=== PATIENT | female | born 1955 | race Caucasian/White ===

== ENCOUNTER 2021-10-02 08:45 | Outpatient (CLI) | payer MEDICARE, OTHER, SELFPAY ==
[2021-10-02 11:16] LABS: Chloride* 101 mmol/L (96-114); Sodium* 138 mmol/L (135-149)
[2021-10-02 11:17] LABS: Potassium* 4.3 mmol/L (3.6-5.1)
[2021-10-02 11:19] LABS: Blood Urea Nitrogen* 18 mg/dL (7-30); Carbon Dioxide* 31 mmol/L (20-32); Cholesterol* 198 mg/dL (90-199); Creatinine* 0.9 mg/dL (0.5-1.5); Estimated Glomerular Filt Rate 70 ml/min
[2021-10-02 11:20] LABS: Calcium* 9.3 mg/dL (8.4-10.6); Glucose* 108 mg/dL (60-115); HDL Cholesterol* 80 mg/dL (>=50); LDL Cholesterol Calculated 100 mg/dL (<100); Triglycerides* 90 mg/dL (40-149)
[2021-10-02 11:50] LABS: TSH With Reflex to FT4* 0.821 uIU/mL (0.270-4.200)
== END 2021-10-02 08:46 | disposition home or self-care (01) ==
PROVIDERS: PCP Internal Medicine; Visit Provider Internal Medicine
DX: E78.5 Hyperlipidemia, unspecified (principal); I10 Essential (primary) hypertension; E03.9 Hypothyroidism, unspecified; M81.0 Age-related osteoporosis without current pathological fracture; Z13.9 Encounter for screening, unspecified
CPT/HCPCS: 80048; 80061; 84443

== ENCOUNTER 2022-04-24 09:49 | Outpatient (CLI) | payer MEDICARE, OTHER, SELFPAY ==
[2022-04-24 14:39] LABS: Albumin* 4.3 g/dL (3.3-5.0)
[2022-04-24 14:42] LABS: Alanine Aminotransferase* 26 U/L (4-35); Alkaline Phosphatase* 38 U/L (40-150); Aspartate Amino Transferase* 30 U/L (12-35); Bilirubin Direct* 0.2 mg/dL (0.0-0.5); Bilirubin Total* 0.6 mg/dL (0.1-1.5)
== END 2022-04-24 09:50 | disposition home or self-care (01) ==
PROVIDERS: PCP Internal Medicine; Visit Provider Nurse Practitioner Family
DX: R14.0 Abdominal distension (gaseous) (principal)
CPT/HCPCS: 80076

== ENCOUNTER 2022-06-08 08:45 | Outpatient (RCR) | payer MEDICARE, OTHER, SELFPAY ==
--- NOTE | 2022-05-03 19:33 | PT.OPEX ---
[facility] PT [facility] Outpatient Eval Start: 05/03/22 09:39 Freq: Status: Active Protocol: Document 05/03/22 09:39 ENM (Rec: 05/03/22 17:30 ENM [id number]) E-signed By Susi Stringer, DPT Physical Therapy Outpatient Evaluation Insurance Information Recert Due Date 07/26/22 Insurance Name Medicare B Medical Diagnosis pain in right shoulder other muscle spasm Treating Diagnosis neck pain, right shoulder pain , decreased scapular strength, hypomobile thoracic spine Referring MD Santana Subjective Subjective Patient presents to PT for complaint of right sided neck/ shoulder pain that started about a month ago. When she went to see the MD it was very bothersome on the ride side in her upper back and neck. The pain was sharp and shooting with specific positions. With reaching to pick things up off the ground it really bothered her. This started after caring for her mother which included sustaining positions where she was reaching to hold her. Also sleeping in a recliner in her mothers room did not help with the pains. Now the pains are not sharp and they are less frequent. Just before coming in today she was reaching into her closet which brought on a little bit of pain. With getting her sports bra off overhead that will consistently bring her issues in the last week. She is active running on the treadmill 3x a week and does an online work out plan with jennifer. 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 Objective Other/Pertinent Objective ROM: AROM shoulder flexion WNL with ache on the right abduction WNL with ache on the right IR T6 B with ache on the right ER T1 B with ache on the right Cervical flexion and ext WNL and pain free SB WNL with very mild pain going towards the right rot L 60 R 55 + for pain in the upper back and neck Strength: shoulder flexion 5/5 shoulder abduction 5/5 shoulder IR0 5/5 shoulder ER0 5/5 DNF able to hold ~20s before having difficult maintain tuck , no pain while performing slight twinge when coming out of it MT 4-/5 B Palpation/joint mobility: CPA and UPA cervical and thoracic spine stiffness throughout, no reproduction of pain no tenderness to palpation of neck musculature Special tests: Spurlings + for pain with SB and SB + ext Functional Test Performed & Score NDI: 0/50 SPADI: Assessment Assessment/Impression Patient is a 66 year old female presenting with once month history of right sided neck and shoulder pains. Their primary complaint is of pain present with reaching and overhead activities. Intensity and frequency of symptoms have been improving over the last month. Upon assessment patients concordant pains brought on with active right cervical sidebending and rotation as well as spurlings testing. Ache is present with all active shoulder ROM but not reproduced with MMT of the shoulder. Stiffness noted with PAs of cervical and thoracic spine. Some alleviation of symptoms with manual cervical distraction. Symptoms seem to be referring from cervical spine. Patient would greatly benefit from skilled PT to address impairments stated above in order to perform all self cares/ ADLs and recreational activities without significant discomfort or difficulty. Primary Functional Limitations reaching out or overhead, taking off sports bra Plan of Care Rehabilitation Potential Good Physical Therapy Goals In 6-8 visits: 1. Patient will be IND with HEP and self management of symptoms 2. Patient will display pain free shoulder ROM in order to perform all self cares and ADLS without significant discomfort or difficulty 3. Patient will display and implement proper body mechanics of cervical spine throughout work day to decrease reoccurrence of symptoms 4. Patient will be able to return to prior exercise routine pain free in order to maintain their cardiovascular fitness Coordination/Communication With Referral Source Treatment Plan/Direct Interventions Electrical Stimulation,Ice/ Cold/Vasopneumatic,Joint Mobilization,Manual Therapy, Neuromuscular Re-ed,Self-Care/ Home Management,Therapeutic Activities,Therapeutic Exercises,Traction (Mechanical ) Frequency/Duration 1x a week for 6-8 visits Patient Will Be Discharged From Therapy Completion of LTG(s), Independent w/HEP Evaluation Billing Untimed Code Treatment Minutes 35 Complexity Low Certification Information Initial Certification Date 05/03/22 Ending Certification Date 07/26/22 Provider Signature Shows Agreement With POC & Medical Necessity Physician Signature & Date Requested Please Sign/Date Here Physician Comment/Change : Physician NPI Number #
== END 2022-06-15 09:26 | disposition home or self-care (01) ==
PROVIDERS: PCP Internal Medicine; Visit Provider Family Medicine
DX: M25.511 Pain in right shoulder (principal); M62.838 Other muscle spasm; M54.2 Cervicalgia; Z51.89 Encounter for other specified aftercare
CPT/HCPCS: 97110; 97140; 97161

== ENCOUNTER 2022-10-12 10:03 | Outpatient (CLI) | payer MEDICARE, OTHER, SELFPAY | END 2022-10-12 10:04 | disposition home or self-care (01) | PROVIDERS: PCP Internal Medicine; Visit Provider Internal Medicine | DX: Z00.00 Encounter for general adult medical examination without abnormal findings (principal); E78.5 Hyperlipidemia, unspecified; I10 Essential (primary) hypertension; E03.9 Hypothyroidism, unspecified; M81.0 Age-related osteoporosis without current pathological fracture | CPT/HCPCS: 80048; 80061; 82306; 84443 ==

== ENCOUNTER 2023-01-05 14:18 | Outpatient (CLI) | payer MEDICARE, OTHER, SELFPAY ==
--- NOTE | 2023-01-05 14:30 | CRLHL7_ITS ---
For Patients: As a result of the Century Cures Act, medical imaging exams and procedure reports are released immediately into your electronic medical record. You may view this report before your referring provider. If you have questions, please contact your health care provider. DXA BONE MINERAL DENSITY STUDY Reason for exam: Osteoporosis. Current height (in): 55. Weight (lb): 120. Menopause age: 53. Ethnicity: White. 1. Have you had a previous hip or vertebral fracture? No. 2. Have you had any fractures during your adult life which did not result from significant trauma (e.g., auto accident)? No. 3. Did either of your parents have a hip fracture? No. 4. Do you smoke? No. 5. Have you ever taken Glucocorticoids? No. 6. Do you have rheumatoid arthritis? No. 7. Do you have secondary osteoporosis? No. 8. Do you drink 3 or more alcoholic drinks per day? No. 9. Are you being treated for osteoporosis? Yes. 10. Have you ever taken any of the following medications: Actonel, Evista, Fosamax, Miacalcin, Reclast, Boniva, Forteo, HRT (i.e., estrogen/hormone therapy), Protelos, Prolia, Vitamin D, Calcium, other ??? please specify. ANSWER: Yes, Fosamax, vitamin D, and calcium. 11. Do you have any of the following medical conditions: Anorexia or bulimia, asthma or emphysema, end stage renal disease, hyperparathyroidism, any seizure disorders, cancer, inflammatory bowel diseases, hysterectomy, other ??? please specify. ANSWER: No. 12. What was your maximum height (inches)? 61.5. 13. Do you perform weight bearing exercise regularly? Yes. 14. Do you regularly consume dairy products? Yes. 15. Do you drink caffeinated beverages? Yes. If female: 16. At what age did your period start? 14. 17. Are you premenopausal? No. 18. How many full-term pregnancies have you had? 3. 19. Have you ever missed your period for more than 6 months in a row (not including or menopause)? No. TECHNIQUE: Bone mineral density study was performed using the [facility]. FINDINGS: The results of the study expressed as bone mineral density (BMD) are as follows: Lumbar spine L1 to L4: BMD: 0.726 g/cm2. T-score: -2.9. Z-score: -0.8 Neck Left: BMD: 0.562 g/cm2. T-score: -2.6. Z-score: -0.8 Right: BMD: 0.674 g/cm2. T-score: -1.6. Z-score: 0.2 Total Left: BMD: 0.670 g/cm2. T-score: -2.2. Z-score: -0.8 Right: BMD: 0.804 g/cm2. T-score: -1.1. Z-score: 0.3 IMPRESSION: Osteoporosis. *Comparison exams done prior to 08/2019 were performed on different unit, [employer]. COMPARISON: Compared with scan of 11/15/2019, the bone mineral density has increased by 0.9 percent at the spine and decreased by 1.5 percent at the hip. Compared with scan of 07/20/2018, the bone mineral density has increased by 0.5 percent at the spine and increased by 9.8 percent at the hip. Gavino Frey M.D. Diagnostic Radiologist [email or web address] [email or web address] jj/Dictated by: Gavino Frey MD @ 01/06/2023 12:27:00 PM (Electronically Signed)
--- NOTE | 2023-01-05 15:00 | CRLHL7_ITS ---
For Patients: As a result of the Century Cures Act, medical imaging exams and procedure reports are released immediately into your electronic medical record. You may view this report before your referring provider. If you have questions, please contact your health care provider. BILATERAL SCREENING MAMMOGRAM WITH COMPUTER-AIDED DETECTION AND TOMOSYNTHESIS TECHNIQUE: CC and MLO views were obtained. These mammographic images have been obtained using full-field digital technique. These mammographic images were interpreted with the benefit of computer-aided detection. Breast Tomosynthesis was used in this interpretation. COMPARISON FILM: 04/09/21, 11/15/19, 08/22/18. FINDINGS: The breasts are heterogeneously dense, which may obscure small masses IMPRESSION: There is no radiographic evidence for malignancy. ASSESSMENT: BI-RADS Category 2: Benign RECOMMENDATION: Routine screening mammogram in 1 year. A lay language report of this examination will be provided to the patient. Gavino Frey M.D. Diagnostic Radiologist [email or web address] [email or web address] Transcribed: 1:11 p.mango rea/Dictated by: Gavino Frey MD @ 01/06/2023 12:13:00 PM (Electronically Signed)
== END 2023-01-05 14:19 | disposition home or self-care (01) ==
LOC: RAD 14:19
PROVIDERS: PCP Internal Medicine; Visit Provider Internal Medicine
DX: Z12.31 Encounter for screening mammogram for malignant neoplasm of breast (principal); R92.2 Inconclusive mammogram; M81.0 Age-related osteoporosis without current pathological fracture
CPT/HCPCS: 77063; 77067; 77080

== ENCOUNTER 2023-11-08 07:50 | Outpatient (CLI) | payer MEDICARE, OTHER, SELFPAY ==
--- OUTSIDE RECORDS SUMMARY | 2023-11-11 06:08 | XMS_ITS | Clinical Summary ---
Author Organization [facility] Address [place], [place] [address] Care Team Providers Care Systems Administration Analyst Name Role Phone Lindsey Garcia MD Primary Care Provider [phone]- [phone] Allergies No known active allergies Medications Medication Sig Dispensed Refills Start Date End Date Status levothyroxine (SYNTHROID) 100 mcg tabletIndications:Unspe cified hypothyroidism Take 1 tablet by mouth once daily. 90 tablet 3 05/03/2014 Active lisinopril (PRINIVIL; ZESTRIL) 5 mg tabletIndications:Unspe cified essential hypertension Take 1 tablet by mouth once daily. 90 tablet 3 05/03/2014 Active lisinopril (PRINIVIL; ZESTRIL) 10 mg tabletIndications:HTN (hypertension) TAKE 1 TABLET BY MOUTH ONCE DAILY 90 tablet 0 02/12/2015 Active Active Problems Problem Noted Date Diagnosed Date Other and unspecified hyperlipidemia 10/05/2007 HYPOTHYROIDISM ACQUIRED UNSPEC, Graves 7 Vitiligo 07/28/2006 Cholesteatoma, unspecified Unspecified essential hypertension Immunizations Name Administration Dates Next Due Influenza, IIV3 (Age >=3 years) 12/27/2007 Td (Age >=7 Years) 07/20/1996 Tdap 08/29/2006 Family History Medical History Relation Name Comments Heart Disease Father [place]; several, f irst in his late 40s Osteoporosis Maternal Grandmother Hypertension Mother Psychiatric illness Mother Cancer Other none Diabetes Other none Heart Disease Paternal Uncle [place] Relation Name Status Comments Father Maternal Grandmother Mother Other Paternal Uncle Social History Tobacco Use Types Packs/Day Years Used Date Smoking Tobacco: Never Smokeless Tobacco: Never Tobacco Cessation:Counseling Given: Yes Alcohol Use Standard Drinks/Week Comments Yes 0 (1 standard drink = 0.6 oz pur e alcohol) 0-6 WEEKLY Sex and Gender Information Value Date Recorded Sex Assigned at Not on file Gender Identity Not on file Sexual Orientation Not on file Obstetrics History Last Filed Vital Signs Vital Sign Reading Time Taken Comments Blood Pressure 132/70 11/13/2014 3:12 PM CDT Pulse 80 11/13/2014 3:12 PM CDT Temperature 36.9 ??C (98.4 ??F) 04/02/2013 9:33 AM CS T Respiratory Rate 16 12/24/2011 8:08 AM CDT Oxygen Saturation 98% 05/03/2014 8:19 AM HEAVY MEDIA OPERATOR Inhaled Oxygen Concentration - - Weight 56.4 kg (124 lb 6.4 oz) 05/03/2014 8:19 A M HEAVY MEDIA OPERATOR Height 156.2 cm (5' 1.5) 05/03/2014 8:19 AM HEAVY MEDIA OPERATOR Body Mass Index 23.13 05/03/2014 8:19 AM HEAVY MEDIA OPERATOR Plan of Treatment Health Maintenance Due Date Last Done Comments Depression screening for age 12+ 1965 BMI (ht and wt on same day) for age 18+ 06/24/1971 Hepatitis C screening for ag e 18-79 06/24/1971 Colonoscopy through age 75 1998 Zoster (shingles) series for age 50+ (1 of 2) 06/24/2003 Mammogram for age 45-75 04/03/2014 04/03/19 14, 12/31/2011, 11/25/2009, Additional history exists Tetanus booster 08/29/2016 08/29/2006, 07/20/1996 Lipids for age 45-75 04/02/2018 04/02/2013, 12/24/2011, 11/25/2009, Additional history exists DEXA/DXA scan for age 65+ 2018 04/03/2013 Medicare Wellness for age 65+ 2018 Pneumococcal series for age 65+ (1 of 1 - PCV) 2018 COVID-19 vaccine series (2022- season) 2023 01/11/2023, 12/30/2021, 10/06/2021, Additional history exists Influenza for age 65+ 11/13/2023 12/27/2007 Tdap Completed 08/29/2006 Procedures Procedure Name Priority Date/Time Associated Diagnosis Comments XR DXA BONE DENSITY 2 SITES AXIAL Routine 04/03/2013 10:21 AM HEAVY MEDIA OPERATOR Screening for osteoporosis XR MAMMO BILAT SCREEN FFDM (IA) Routine 04/03/2013 9:42 AM HEAVY MEDIA OPERATOR Screening for osteoporosis Other screening mammogram LIPID PANEL W REFLEX MEASURED LDL Routine 04/02/2013 10:21 AM HEAVY MEDIA OPERATOR HYPERLIPIDEMIA from Last 3 Months or Most Recently Relevant to Health Maintenance Results * (ABNORMAL) XR DXA BONE DENSITY 2 SITES (04/03/2013 10:21 AM HEAVY MEDIA OPERATOR) Anatomical Region Laterality Modality Spine, HIPS, HIPL, HIPR Other Narrative 04/04/2013 4:51 PM HEAVY MEDIA OPERATOR Please see scanned document for results of this study. Procedure Note Nicole Mcwilliams E - 04/04/2013 Please see scanned document for results of this study. Madison DAUGHERTY DEXA * XR MAMMO BILAT SCREEN FFDM (04/03/2013 9:42 AM HEAVY MEDIA OPERATOR) Anatomical Region Laterality Modality BREASTS, Breast Left, Breast Right Bilateral Mammography Impressions 04/03/2013 12:32 PM HEAVY MEDIA OPERATOR ??There is no radiographic evidence for malignancy. ??Recommend annual mammograms. A lay language report of this examination will be provided to the patient. MAMMOGRAM ASSESSMENT: ??ACR 2 Benign Narrative 04/03/2013 12:32 PM HEAVY MEDIA OPERATOR XR MAMMO BILAT SCREEN FFDM [G0202.0] CLINICAL HISTORY: ??This is an asymptomatic 57 y.o. patient. INDICATION FOR EXAM: Mammogram Screening. TECHNIQUE: CC & MLO views were obtained. ??This digital study was evaluated with the assistance of Computer-Aided Detection. ?? COMPARISON FILMS: Yes 12/31/11 [facility] 11/24/09 [facility] FINDINGS: ??Mammographically, the breast tissue is heterogeneously dense, which could obscure detection of small masses (approximately 51% - 75% glandular). ??No suspicious masses or microcalcifications. ??Benign appearing calcifications within both breasts and Intramammary lymph node within left breast. Procedure Note David Mckeon DO - 04/03/2013 XR MAMMO BILAT SCREEN FFDM [G0202.0] CLINICAL HISTORY: This is an asymptomatic 57 y.o. patient. INDICATION FOR EXAM: Mammogram Screening. TECHNIQUE: CC & MLO views were obtained. This digital study was evaluatedwith the assistance of Computer-Aided Detection. COMPARISON FILMS: Yes 12/31/11 [facility] 11/24/09 [facility] FINDINGS: Mammographically, the breast tissue is heterogeneously dense,which could obscure detection of small masses (approximately 51% - 75%glandular). No suspicious masses or microcalcifications. Benignappearing calcifications within both breasts and Intramammary lymph nodewithin left breast. IMPRESSION: There is no radiographic evidence for malignancy. Recommendannual mammograms. A lay language report of this examination will be provided to the patient. MAMMOGRAM ASSESSMENT: ACR 2 Benign Madison DAUGHERTY MAMMO * (ABNORMAL) LIPID PANEL W REFLEX MEASURED LDL (04/02/2013 10:21 AM [facility]) CHOLESTEROL,TOTAL 248(H) 100 - 199 mg/dL 04/02/2013 10:47 AM [facility] TRIGLYCERIDES 63 <150 mg/dL 04/02/2013 10:47 AM [facility] HDL CHOLESTEROL 75 >40 mg/dL 4 10:47 AM [facility] NON-HDL CHOLESTEROL 173(H) <145 mg/dl 04/02/2013 10:47 AM [facility] CHOL/HDL RATIO 3.31 <4.50 04/02/2013 10:47 AM [facility] LDL CHOLESTEROL 160(H) <=130 mg/dL 04/02/2013 10:47 AM [facility] PATIENT STATUS FASTING 04/02/2013 10:47 AM [facility] Blood specimen (specimen) BLOOD SPECIMEN / Unknown Venipuncture / Unknown 04/02/2013 10:21 AM [facility] 04/02/2013 10:21 AM HEAVY MEDIA OPERATOR Madison DAUGHERTY CHEMISTRY [facility] [address] [place] [address] from Last 3 Months or Most Recently Relevant to Health Maintenance Care Teams Systems Administration Analyst Relationship Specialty Start Date End Date Linsdey Garcia MD [address] [place], [place] [id number] PCP - General Internal Medicine 05/31/23
== END 2023-11-08 07:51 | disposition home or self-care (01) ==
LOC: NFLDREF 11-11 06:07
PROVIDERS: PCP Internal Medicine; Referring Provider Internal Medicine; Visit Provider Internal Medicine
DX: E78.5 Hyperlipidemia, unspecified (principal); E03.9 Hypothyroidism, unspecified; M85.80 Other specified disorders of bone density and structure, unspecified site; I10 Essential (primary) hypertension
CPT/HCPCS: 80048; 80061; 82306; 84443

== ENCOUNTER 2023-12-21 13:18 | Emergency (ER) | payer MEDICARE, OTHER, SELFPAY ==
[2023-12-21] VITALS (7 sets, daily range): BP systolic 167; BP diastolic 105; PULSE 54–85; RESP 16–18; TEMP 36.3; O2SAT 97–100; BMI 21.7
--- NOTE | 2023-12-21 13:41 | CRLHL7_ITS ---
For Patients: As a result of the Century Cures Act, medical imaging exams and procedure reports are released immediately into your electronic medical record. You may view this report before your referring provider. If you have questions, please contact your health care provider. INDICATION: Acute stroke, amnesia. TECHNIQUE: CTA neck with contrast bolus tracking, 3D angiographic rendering using maximum intensity projection (MIP) and images permanently archived. FINDINGS: There is a mildly corrugated appearance to the right internal carotid artery consistent with fibromuscular dysplasia. There is no significant carotid artery stenosis or dissection. There is no significant vertebral artery stenosis or dissection. There has been a thyroidectomy. The soft tissues of the neck are otherwise within normal limits. The cervical spine is in normal alignment. Degenerative changes are noted in the cervical spine. There has been a left mastoidectomy. A large mucous retention cyst is present in the left maxillary sinus. Scarring is present in the lung apices. IMPRESSION: Fibromuscular dysplasia of the right ICA. No significant carotid or vertebral artery stenosis or dissection. Please note that all CT scans at this facility use dose modulation, iterative reconstruction, and/or weight-based dosing when appropriate to reduce radiation dose to as low as reasonably achievable. Dictated by Thai Eduardo MD @ 12/21/2023 4:36:20 PM (Electronically Signed)
--- NOTE | 2023-12-21 13:41 | CRLHL7_ITS ---
For Patients: As a result of the Century Cures Act, medical imaging exams and procedure reports are released immediately into your electronic medical record. You may view this report before your referring provider. If you have questions, please contact your health care provider. INDICATION: Acute stroke, amnesia. TECHNIQUE: CTA head with contrast bolus tracking, 3D angiographic rendering using maximum intensity projection (MIP) and images permanently archived. FINDINGS: There is normal opacification of the intracranial vasculature. There is no large vessel occlusion. No aneurysm is identified. IMPRESSION: Unremarkable head CTA. Please note that all CT scans at this facility use dose modulation, iterative reconstruction, and/or weight-based dosing when appropriate to reduce radiation dose to as low as reasonably achievable. Dictated by Thai Eduardo MD @ 12/21/2023 4:33:19 PM (Electronically Signed)
--- NOTE | 2023-12-21 13:41 | CRLHL7_ITS ---
For Patients: As a result of the Century Cures Act, medical imaging exams and procedure reports are released immediately into your electronic medical record. You may view this report before your referring provider. If you have questions, please contact your health care provider. INDICATION: BRIEF EPISODE OF AMNESIA TECHNIQUE: CT of the head was performed without IV contrast. COMPARISON: None. FINDINGS: Parenchyma: No acute hemorrhage, infarction, or mass. Mild scattered periventricular white matter hypoattenuation is nonspecific and is favored to represent chronic small vessel ischemic disease. Ventricles and extra-axial spaces: Mild involutional changes. Visualized paranasal sinuses: Moderate left maxillary sinus mucosal retention cyst versus polyp. Mastoid air cells: Postsurgical changes from left mastoidectomy. Bones: No focal abnormality. Additional comment: Bilateral lens surgery. IMPRESSION: No acute intracranial abnormality. Please note that all CT scans at this facility use dose modulation, iterative reconstruction, and/or weight-based dosing when appropriate to reduce radiation dose to as low as reasonably achievable. Dictated by Baljinder Contreras MD @ 12/21/2023 3:00:15 PM (Electronically Signed)
--- NOTE | 2023-12-21 13:51 | ED.GENADULT ---
HPI - General Adult General Date Seen: 12/21/23 Chief complaint: Syncope/Fainted Stated complaint: Altered mental status-sent by triage poss stroke Time Seen by Provider: 12/21/23 13:22 Source: patient Mode of arrival: ambulatory Limitations: no limitations History of Present Illness HPI narrative: Patient is a 68-year-old female presenting to the emergency department for a short episode of amnesia and confusion. She was sitting and 1 of the rooms of the home doing work on her laptop when her suddenly heard her say I do not know what is going on.He is still was related to the computer so went in to check on her and noticed when he got in there she was staring off into the distance and had her laptop knocked flat which would be abnormal considering she was just using it. He states she shortly went back to normal within seconds and states when he heard her speak but the room into the room her speech sounded completely normal. She states she has not remember what happened in sun sure how long the symptoms are going on for but does think it was a relatively short amount of time as in seconds and not minutes. Shortly after this all resolved she had some nausea, dizziness, headache that has since all fully resolved. She states she feels completely back to normal. She has hypertension, hyperlipidemia and hypothyroidism that she is on medications for and she is a relatively active person who just finished a 5K last weekend. Has never been told she has an irregular heartbeat and no history of strokes that she is aware of. No other concerns noted at this time. Denies chest pain, shortness of breath, vision changes, weakness, numbness, abdominal pain, diarrhea, constipation, dysuria. Related Data Home Medications ?Medication ?Instructions ?Recorded ?Confirmed calcium 500 mg (as 1 tab PO DAILY 10/06/21 12/21/23 carb,cit)-magnesium 250 mg-vit D3 200 unit tablet mlcedidk-ehxdrftbi-udyzpzmzu 3.5 4 drp otic (ear) .As Needed PRN 10/06/21 11/10/23 mg-10,000 unit/mL-1 % ear drops,susp psyllium husk 0.52 gram capsule 2.08 g PO QDAY 10/06/21 11/10/23 naproxen 500 mg tablet,delayed 500 mg PO BID PRN 05/10/22 11/10/23 release Previous Rx's ?Medication ?Instructions ?Recorded levothyroxine 100 mcg tablet 100 mcg PO DAILY #90 tabs 11/10/23 lisinopril 10 mg tablet 10 mg PO DAILY #90 tabs 11/10/23 simvastatin 5 mg tablet 5 mg PO QPM #90 tabs 11/10/23 Allergies Allergy/AdvReac Type Severity Reaction Status Date / Time No Known Allergies Allergy Verified 12/21/23 13:28 Review of Systems Status of ROS: Reports: 10 or more systems reviewed and unremarkable except as noted in History and below PFSH [facility] Surgical History History of cataract surgery ?Z98.49 - Cataract extraction status, unspecified eye (ICD-10) History of cholesteatoma ?Z86.69 - Personal history of other diseases of the nervous system and sense organs (ICD-10) History of total thyroidectomy (1990) ?E89.0 - Postprocedural hypothyroidism (ICD-10) History of tonsillectomy ?Z90.89 - Acquired absence of other organs (ICD-10) History of mastoidectomy ?Z90.89 - Acquired absence of other organs (ICD-10) History of colonoscopy (2016) ?Z98.890 - Other specified postprocedural states (ICD-10) History of benign breast biopsy (2016) ?Z98.890 - Other specified postprocedural states (ICD-10) Social History What is your current living situation?: I presently have a place to live Problems where you live: no known problems In the past 12 months, utilities in danger of being shut off: no In past 12 months, lack of transportation kept you from medical appts, meetings, work, or getting things needed for daily living: no In the past 12 mos, have been you worried that your food would run out before you had money to buy more?: never true In the past 12 mos, the food you bought just didn't last and you didn't have money to buy more?: never true Smoking Status: Never smoker How often does anyone, including family, friends and others, physically hurt you: never How often does anyone, including family, friends and others, insult or talk down to you: never How often does anyone, including family, friends and others, threaten you with harm: never How often does anyone, including family, friends and others, scream or curse at you: never Little interest or pleasure in doing things: not at all Feeling down, depressed, or hopeless: not at all Exam Narrative: Exam Narrative: Const: Well-nourished, Well-developed, in no distress Eyes: PERRL, no conjunctival injection, and symmetrical lids HENT: Atraumatic external nose and ears. Moist mucous membranes. Neck: Symmetric, trachea midline, No thyromegaly. CVS: RRR, No murmurs or gallops. Peripheral pulses 2+ and equal in all extremities RESP: Unlabored respiratory effort. Clear to auscultation bilaterally. GI: Nontender/Nondistended, No rebound or guarding. MSK:Extremities w/o deformity, Normal Active ROM Skin: Warm, Dry. No rashes or lesions. Neuro: Normal Muscle tone, Cranial nerves 2-12 grossly intact, normal lmsa-ig-fexe, normal kqsmgo-sy-vxvv, normal gait, normal strength 5/5 upper lower extremities bilaterally, normal sensation upper and lower extremities bilaterally, normal rapid alternating movements. Psych: Awake, Alert, & Oriented x3. Appropriate mood and affect. Const: Vital Signs, click to edit/add: Vital Signs - 24 hr 12/21/23 13:29 12/21/23 14:40 12/21/23 14:42 Temperature 97.3 F L Pulse Rate 85 78 Pulse Rate [Pulse Oximeter] 59 L Respiratory Rate 18 Blood Pressure [Le ft Upper Arm] 167/105 H Pulse Oximetry 98 Oxygen Delivery Me thod Room Air 12/21/23 14:46 12/21/23 15:00 12/21/23 15:15 Temperature Pulse Rate 54 L 54 L 54 L Pulse Rate [Pulse Oximeter] Respiratory Rate Blood Pressure [Le ft Upper Arm] Pulse Oximetry 100 98 97 Oxygen Delivery Me thod 12/21/23 15:30 Temperature Pulse Rate 62 Pulse Rate [Pulse Oximeter] Respiratory Rate 16 Blood Pressure [Le ft Upper Arm] Pulse Oximetry 98 Oxygen Delivery Me thod Course Vital Signs Vital signs: Initial Vital Signs Temperature 97.3 F L 12/21/23 13:29 Temperature Source Temporal Artery Scan 12/21/23 13:29 Pulse Rate 59 L 12/21/23 13:29 Respiratory Rate 18 12/21/23 13:29 Blood Pressure 167/105 H 12/21/23 13:29 Blood Pressure Mean 125 H 12/21/23 13:29 Blood Pressure Position Semi-Fowlers 12/21/23 13:29 Pulse Oximetry 98 12/21/23 13:29 Oxygen Delivery Method Room Air 12/21/23 13:29 Vital Signs Temperature 97.3 F L 12/21/23 13:29 Pulse Rate 59 L 12/21/23 13:29 Respiratory Rate 18 12/21/23 13:29 Blood Pressure 167/105 H 12/21/23 13:29 Pulse Oximetry 98 12/21/23 13:29 Oxygen Delivery Method Room Air 12/21/23 13:29 Temperature 97.3 F L 12/21/23 13:29 Pulse Rate 62 12/21/23 15:30 Respiratory Rate 16 12/21/23 15:30 Blood Pressure 167/105 H 12/21/23 13:29 Pulse Oximetry 98 12/21/23 15:30 Oxygen Delivery Method Room Air 12/21/23 13:29 Medical Decision Making [facility] Narrative Medical decision making narrative: Patient is a 68-year-old female presenting for an episode of amnesia. Based on description seems like his an episode of changes a have global amnesia. I will of a dry electrolytes look for electrolyte abnormality a voicemail at his knee, check for hyperglycemia, what is CTA and CT to look for signs of CVA. No history of migraines so this seems unlikely to be a complicated migraine. Troponin, EKG, urinalysis, BMP, CBC, COVID/flu all ordered. Lab work all returned showing no concerning abnormalities. EKG returned showing no concerning findings. Seems unlikely to be cardiac in nature no signs of AFib that could have thrown a clot. Does not appear to be a hypoglycemic episode. No signs of infection at this time. CT scan head non-con CTA head and neck done returned showing no concerning abnormalities. That is maybe some fibromuscular dysplasia in the right PRIYANKA but this is unlikely to be causing her symptoms. I then spoke to the on-call neurologist from [facility] for recommendations and she does recommend doing an MRI. This is able to be done in the emergency department so it was ordered. Also recommends to discharge her on a baby aspirin and follow up with primary care to get a neurology referral for possible EEG. MRI was done and also shows no acute concerning abnormalities. Patient is doing well at this time continues to be asymptomatic. I will discharge her home on the baby aspirin. She states she will follow-up with her primary care doctor tomorrow. Lab Data Labs: Lab Results 12/21/23 12/21/23 12/21/23 Range/Units 13:50 13:55 Unknown WBC 6.57 (4.50-11.00) K/uL RBC 4.61 (4.00-5.20) m/uL Hgb 14.1 (12.0-16.0) gm/dL Hct 42.8 (33.0-51.0) % MCV 93 (80-100) fL MCH 31 (26-34) pg MCHC 33 (32-36) gm/dL RDW Coeff of Chayo 12.1 (11.5-15.5) % Plt Count 236 (140-440) K/uL Neut % (Auto) 73.9 H (42.0-72.0) % Lymph % (Auto) 18.3 L (20-44) % [place] % (Auto) 6.7 (0.0-11.0) % Eos % (Auto) 0.6 (0.0-7.0) % Baso % (Auto) 0.5 (0.0-3.0) % Neut # (Auto) 4.90 (1.7-7.0) K/uL Lymph # (Auto) 1.20 (0.90-2.90) K/uL [place] # (Auto) 0.40 (0.00-0.90) K/UL Eos # (Auto) 0.04 (0.00-0.50) K/uL Baso # (Auto) 0.03 (0.00-0.30) K/uL Abs Immat Gran (auto) 0.00 (0.00-0.30) K/uL Imm/Tot Granulo (auto) 0.0 % Sodium 136 (135-149) mmol/L Potassium 4.0 (3.6-5.1) mmol/L Chloride 98 (96-114) mmol/L Carbon Dioxide 32 (20-32) mmol/L Anion Gap 6 L (7-15) mEq/L BUN 27 (7-30) mg/dL Creatinine 0.9 (0.5-1.5) mg/dL Estimated Creat Clear 39.50 Estimated GFR 69 ml/min Glucose 106 (60-115) mg/dL Calcium 9.6 (8.4-10.6) mg/dL TSH 1.070 (0.270-4.200) uIU/mL Urine Color Yellow (Yellow) Urine Appearance Clear (Clear) Urine pH 6.5 (5.0-8.5) Ur Specific [place] 1.015 (1.000-1.030) Urine Protein Negative (Negative) Urine Glucose (UA) Negative (Negative) Urine Ketones Negative (Negative) Urine Blood Negative (Negative) Urine Nitrite Negative (Negative) Urine Bilirubin Negative (Negative) Urine Urobilinogen 0.2 (0.2-1.0) Ur Leukocyte Esterase Negative (Negative) Urine RBC 0-2 (0-2) Urine WBC 0-2 (0-5) Ur Squamous Epith Cells Few (None-Few) Urine Bacteria Few A (None) SARS-CoV-2 (PCR) Negative SARS-CoV-2 (Negative) Influenza Type A (PCR) Negative PCR FLU A (Negative) Influenza Type B (PCR) Negative PCR FLU B (Negative) POC Creatinine 1.0 (0.6-1.3) mg/dl POC Troponin I 0.00 L (0.01-0.04) ng/ml Imaging Data CT scan head: Attestation: I have reviewed the pertinent imaging results. Radiologist's impression: No acute intracranial abnormality. Please note that all CT scans at this facility use dose modulation, iterative reconstruction, and/or weight-based dosing when appropriate to reduce radiation dose to as low as reasonably achievable. Dictated by Baljinder Contreras MD @ 12/21/2023 3:00:15 PM CTA head: Attestation: I have reviewed the pertinent imaging results. Radiologist's impression: Unremarkable head CTA. Please note that all CT scans at this facility use dose modulation, iterative reconstruction, and/or weight-based dosing when appropriate to reduce radiation dose to as low as reasonably achievable. Dictated by Thai Eduardo MD @ 12/21/2023 4:33:19 PM CTA neck: Attestation: I have reviewed the pertinent imaging results. Radiologist's impression: Fibromuscular dysplasia of the right ICA. No significant carotid or vertebral artery stenosis or dissection. Please note that all CT scans at this facility use dose modulation, iterative reconstruction, and/or weight-based dosing when appropriate to reduce radiation dose to as low as reasonably achievable. Dictated by Thai Eduardo MD @ 12/21/2023 4:36:20 PM MRI brain: Attestation: I have reviewed the pertinent imaging results. Radiologist's impression: 1. No acute intracranial abnormality. Specifically, no evidence of acute ischemia. 2. Few scattered foci of T2 prolongation within the supratentorial white matter, nonspecific, but commonly seen in the setting of mild chronic small-vessel ischemic changes Dictated by Elbert Malhotra MD @ 12/21/2023 5:18:49 PM ECG Data Attestation: I personally reviewed and interpreted this ECG as follows: Prior ECG tracings: not available for review Interpretation: Sinus bradycardia rate 56 beats per minute, normal intervals, normal axis, no ST or T-wave abnormalities. Discharge Plan Discharge Clinical Impression: Transient amnesia Patient Disposition: Home, Self-Care Condition: Stable Instructions: Disorders of Consciousness (DC) Additional Instructions: Is important you call your primary care provider tomorrow to get follow-up. They then will need to get he referral to Neurology who then may want to do an EEG or for other further testing. If this happens again return to emergency department for re-evaluation. Prescriptions: No Action calcium carb,cit-mag 12-vit D3 500-250-200 mg-mg-unit tablet 1 tab PO DAILY tjypmeln-ezyzdslja-ZT 3.5-10,000-1 mg/mL-unit/mL-% drops,suspension 4 drp otic (ear) .As Needed PRN psyllium husk 0.52 gram capsule 2.08 g PO QDAY naproxen 500 mg tablet,delayed release (DR/EC) 500 mg PO BID PRN lisinopril 10 mg tablet 10 mg PO DAILY Qty: 90 3RF levothyroxine 100 mcg tablet 100 mcg PO DAILY Qty: 90 3RF simvastatin 5 mg tablet 5 mg PO QPM Qty: 90 3RF Follow Up/Referrals: Lindsey Garcia MD [Primary Care Provider] - Stand Alone Forms: [employer] Info Instructions
[2023-12-21 14:03] LABS: Appearance Urine Clear (Clear); Bilirubin Urine Negative (Negative); Blood Urine Negative (Negative); Color Urine Yellow (Yellow); Glucose Urine Negative (Negative); Ketones Urine Negative (Negative); Leukocyte Esterase Urine Negative (Negative); Nitrite Urine Negative (Negative); Protein Urine Negative (Negative); Specific Gravity Urine 1.015 (1.000-1.030); Urobilinogen Urine 0.2 (0.2-1.0); pH Urine 6.5 (5.0-8.5)
[2023-12-21 14:12] LABS: Basophils Absolute Auto 0.03 K/uL (0.00-0.30); Basophils Percent Auto 0.5 % (0.0-3.0); Eosinophils Absolute Auto 0.04 K/uL (0.00-0.50); Eosinophils Percent Auto 0.6 % (0.0-7.0); Hematocrit 42.8 % (33.0-51.0); Hemoglobin* 14.1 gm/dL (12.0-16.0); Lymphocytes Percent Auto 18.3 % (20-44); Mean Corpuscular HGB Conc 33 gm/dL (32-36); Mean Corpuscular Hemoglobin 31 pg (26-34); Mean Corpuscular Volume 93 fL (80-100); Monocytes Percent Auto 6.7 % (0.0-11.0); Neutrophils Percent Auto 73.9 % (42.0-72.0); Platelet Count* 236 K/uL (140-440); RDW Coefficient of Variation % 12.1 % (11.5-15.5); Red Blood Count 4.61 m/uL (4.00-5.20); White Blood Count* 6.57 K/uL (4.50-11.00)
[2023-12-21 14:15] LABS: Slide Review Reflex No
[2023-12-21 14:19] LABS: Bacteria Urine Few; RBC Urine 0-2 (0-2); Squamous Epithelial Cell Urine Few (None-Few); WBC Urine 0-2 (0-5)
[2023-12-21 14:25] LABS: Chloride* 98 mmol/L (96-114); Sodium* 136 mmol/L (135-149)
[2023-12-21 14:27] LABS: Creatinine* 0.9 mg/dL (0.5-1.5); Estimated Glomerular Filt Rate 69 ml/min
[2023-12-21 14:28] LABS: Anion Gap 6 mEq/L (7-15); Blood Urea Nitrogen* 27 mg/dL (7-30); Carbon Dioxide* 32 mmol/L (20-32); Glucose* 106 mg/dL (60-115)
[2023-12-21 14:29] LABS: Calcium* 9.6 mg/dL (8.4-10.6)
[2023-12-21 14:47] LABS: PCR FLU A Negative PCR FLU A (Negative); PCR FLU B Negative PCR FLU B (Negative); SARS PCR* Negative SARS-CoV-2 (Negative)
--- NOTE | 2023-12-21 16:06 | CRLHL7_ITS ---
For Patients: As a result of the Century Cures Act, medical imaging exams and procedure reports are released immediately into your electronic medical record. You may view this report before your referring provider. If you have questions, please contact your health care provider. Indication: Short episode of amnesia. Technique: Multisequence multiplanar MRI of the brain without the use of intravenous contrast. Comparison: Correlated with CT head from earlier the same day 12/21/2023 at 2:36 p.m.. Findings: No evidence of acute ischemia. Few scattered foci of T2 prolongation within the supratentorial white matter of both cerebral hemispheres. No abnormal susceptibility artifact. The ventricles are normal in size. Flow voids of the larger intracranial arteries are preserved. Remote left mastoidectomy. Evidence of prior cataract surgery. Postinflammatory retention cysts within the left inferior maxillary sinus. Impression: 1. No acute intracranial abnormality. Specifically, no evidence of acute ischemia. 2. Few scattered foci of T2 prolongation within the supratentorial white matter, nonspecific, but commonly seen in the setting of mild chronic small-vessel ischemic changes Dictated by Elbert Malhotra MD @ 12/21/2023 5:18:49 PM (Electronically Signed)
== END 2023-12-21 17:45 | disposition home or self-care (01) ==
PROVIDERS: Emergency Provider Student in an Organized Health Care Education/Training Program; PCP Internal Medicine
DX: G45.4 Transient global amnesia (principal)
CPT/HCPCS: 36415; 70450; 70496; 70498; 70551; 80048; 81001; 82565; 84443; 84484; 85025; 87086; 87631; 93005; 99283; 99284; 99285; Q9967

== ENCOUNTER 2024-02-03 13:32 | Outpatient (CLI) | payer MEDICARE, OTHER, SELFPAY ==
--- OUTSIDE RECORDS SUMMARY | 2024-02-03 13:35 | XMS_ITS | Clinical Summary ---
Author Organization [facility] Address [place], [place] [address] Care Team Providers Care Alloy Weigher Name Role Phone Lindsey Garcia MD Primary Care Provider [phone] Allergies No known active allergies Medications Medication [...] History Relation Name Comments Heart Disease Father PR; several, f irst in his late 40s Osteoporosis Maternal Grandmother Hypertension Mother Psychiatric illness Mother Cancer Other none Diabetes Other none Heart Disease Paternal Uncle PR Relation Name Status Comments Father Maternal Grandmother [...] 78 11/13/2014 3:12 PM CDT Temperature 36.9 C (98.4 F) 04/02/2013 9:33 AM USED EQUIPMENT SALES REPRESENTATIVE Respiratory Rate 16 12/24/2011 8:08 AM CDT Oxygen Saturation 98% 05/03/2014 8:19 AM USED EQUIPMENT SALES REPRESENTATIVE Inhaled Oxygen Concentration - - Weight 56.4 kg (124 lb 6.4 oz) 05/03/2014 8:19 A M USED EQUIPMENT SALES REPRESENTATIVE Height 156.2 cm (5' 1.5) 05/03/2014 8:19 AM USED EQUIPMENT SALES REPRESENTATIVE Body Mass Index 23.13 05/03/2014 8:19 AM USED EQUIPMENT SALES REPRESENTATIVE Plan of Treatment Health Maintenance Due Date [...] 1 - PCV) 2018 COVID-19 vaccine series ( season) 2023 01/11/2023, 12/30/2021, 10/06/2021, Additional history exists Influenza for age 65+ 11/13/2023 12/27/2007 Tdap Completed 08/29/2006 Procedures Procedure Name Priority Date/Time Associated Diagnosis Comments XR DXA BONE DENSITY 2 SITES AXIAL Routine 04/03/2013 10:21 AM USED EQUIPMENT SALES REPRESENTATIVE Screening for osteoporosis XR MAMMO BILAT SCREEN FFDM (IA) Routine 04/03/2013 9:42 AM USED EQUIPMENT SALES REPRESENTATIVE Screening for osteoporosis Other screening mammogram LIPID PANEL W REFLEX MEASURED LDL Routine 04/02/2013 10:21 AM USED EQUIPMENT SALES REPRESENTATIVE HYPERLIPIDEMIA from Last 3 Months or Most Recently Relevant to Health Maintenance Results * (ABNORMAL) XR DXA BONE DENSITY 2 SITES (04/03/2013 10:21 AM USED EQUIPMENT SALES REPRESENTATIVE) Anatomical Region Laterality Modality Spine, HIPS, HIPL, HIPR Other Narrative 04/04/2013 4:51 PM USED EQUIPMENT SALES REPRESENTATIVE Please see scanned document for results of this study. Procedure Note Nicole Mcwilliams E - 04/04/2013 Please see scanned document for results of this study. [place] [facility] DEXA * XR MAMMO BILAT SCREEN FFDM (04/03/2013 9:42 AM USED EQUIPMENT SALES REPRESENTATIVE) Anatomical Region Laterality Modality BREASTS, Breast Left, Breast Right Bilateral Mammography Impressions 04/03/2013 12:32 PM USED EQUIPMENT SALES REPRESENTATIVE There is no radiographic evidence for malignancy. Recommend annual mammograms. A lay language report of this examination will be provided to the patient. MAMMOGRAM ASSESSMENT: ACR 2 Benign Narrative 04/03/2013 12:32 PM USED EQUIPMENT SALES REPRESENTATIVE XR MAMMO BILAT SCREEN FFDM [G0202.0] CLINICAL HISTORY: This is an asymptomatic 57 y.o. patient. INDICATION FOR EXAM: Mammogram Screening. TECHNIQUE: CC & MLO views were obtained. This digital study was evaluated with the assistance of Computer-Aided Detection. COMPARISON FILMS: Yes 12/31/11 [facility] 11/24/09 [facility] FINDINGS: Mammographically, the breast tissue is heterogeneously dense, which could obscure detection of small masses (approximately 51% - 75% glandular). No suspicious masses or microcalcifications. Benign appearing calcifications within both breasts and Intramammary lymph node within left breast. Procedure Note David Mckeon, DO - 04/03/2013 XR MAMMO BILAT SCREEN FFDM [G0202.0] CLINICAL HISTORY: This is an asymptomatic 57 y.o. patient. INDICATION FOR EXAM: Mammogram Screening. TECHNIQUE: CC & MLO views were obtained. This digital study was evaluatedwith the assistance of Computer-Aided Detection. COMPARISON FILMS: Yes 12/31/11 [facility] 11/24/09 [facility] FINDINGS: Mammographically, the breast tissue is [...] W REFLEX MEASURED LDL (04/02/2013 10:21 AM [facility]) CHOLESTEROL,TOTAL 248(H) 100 - 199 mg/dL 04/02/2013 10:47 AM [facility] TRIGLYCERIDES 63 <150 mg/dL 04/02/2013 10:47 AM [facility] HDL CHOLESTEROL 75 >40 mg/dL 4 10:47 AM [facility] NON-HDL CHOLESTEROL 173(H) <145 mg/dl 04/02/2013 10:47 AM [facility] CHOL/HDL RATIO 3.31 <4.50 04/02/2013 10:47 AM [facility] LDL CHOLESTEROL 160(H) <=130 mg/dL 04/02/2013 10:47 AM [facility] PATIENT STATUS FASTING 04/02/2013 10:47 AM [facility] Blood specimen (specimen) BLOOD SPECIMEN / Unknown Venipuncture / Unknown 04/02/2013 10:21 AM USED EQUIPMENT SALES REPRESENTATIVE 04/02/2013 10:21 AM [facility] [place] [facility] [address] [place] [address] from Last 3 Months or Most Recently Relevant to Health Maintenance Care Teams Alloy Weigher Relationship Specialty Start Date End Date Lindsey Garcia MD [address] [place] [address] PCP - General Internal Medicine 05/31/23
--- NOTE | 2024-02-03 13:40 | CRLHL7_ITS ---
For Patients: As a result of the Century Cures Act, medical imaging exams and procedure reports are released immediately into your electronic medical record. You may view this report before your referring provider. If you have questions, please contact your health care provider. BILATERAL SCREENING MAMMOGRAM WITH COMPUTER-AIDED DETECTION AND TOMOSYNTHESIS TECHNIQUE: CC and MLO views were obtained. These mammographic images have been obtained using full-field digital technique. These mammographic images were interpreted with the benefit of computer-aided detection. Breast Tomosynthesis was used in this interpretation. COMPARISON FILM: 01/05/23, 04/09/21, 11/15/19. FINDINGS: The breasts are heterogeneously dense, which may obscure small masses IMPRESSION: There is no radiographic evidence for malignancy. ASSESSMENT: BI-RADS Category 2: Benign RECOMMENDATION: Routine screening mammogram in 1 year. A lay language report of this examination will be provided to the patient. Gavino Frey M.D. Diagnostic Radiologist [email or web address] OLIVIER/Dictated by: Gavino Frey MD @ 02/06/2024 12:48:00 PM (Electronically Signed)
== END 2024-02-03 13:33 | disposition home or self-care (01) ==
LOC: MAMMO 13:33
PROVIDERS: PCP Internal Medicine; Visit Provider Internal Medicine
DX: Z12.31 Encounter for screening mammogram for malignant neoplasm of breast (principal); R92.333 Mammographic heterogeneous density, bilateral breasts
CPT/HCPCS: 77063; 77067

== ENCOUNTER 2024-11-09 09:00 | Outpatient (CLI) | payer MEDICARE, OTHER, SELFPAY | END 2024-11-09 09:01 | disposition home or self-care (01) | LOC: NFLDREF 11-13 03:11 | PROVIDERS: PCP Internal Medicine; Referring Provider Internal Medicine; Visit Provider Internal Medicine | DX: M81.0 Age-related osteoporosis without current pathological fracture (principal); E78.5 Hyperlipidemia, unspecified; I10 Essential (primary) hypertension; E03.2 Hypothyroidism due to medicaments and other exogenous substances | CPT/HCPCS: 80048; 80061; 82306; 84443 ==

== ENCOUNTER 2025-03-08 08:06 | Outpatient (CLI) | payer MEDICARE, OTHER, SELFPAY ==
--- NOTE | 2025-03-08 08:15 | CRLHL7_ITS ---
For Patients: As a result of the Century Cures Act, medical imaging exams and procedure reports are released immediately into your electronic medical record. You may view this report before your referring provider. If you have questions, please contact your health care provider. INDICATION: BILATERAL SCREENING MAMMOGRAM, ASYMPTOMATIC 69 Y/O FEMALE COMPARISON: 02/03/2024, 01/05/2023, 04/09/2021 TECHNIQUE: Digital mammogram in CC and MLO projections including computer-aided detection (CAD) and tomosynthesis. BREAST COMPOSITION: The breasts are heterogeneously dense, which may obscure small masses. FINDINGS: No suspicious findings. ASSESSMENT: BI-RADS 2 Benign RECOMMENDATION: Annual screening mammogram. A lay language report of this examination will be provided to the patient. Dictated by: Annabel Hanks MD @ 03/08/2025 14:27:12 (Electronically Signed)
== END 2025-03-08 08:07 | disposition home or self-care (01) ==
LOC: MAMMO 08:08
PROVIDERS: PCP Internal Medicine; Visit Provider Internal Medicine
DX: Z12.31 Encounter for screening mammogram for malignant neoplasm of breast (principal); R92.333 Mammographic heterogeneous density, bilateral breasts
CPT/HCPCS: 77063; 77067